=== PATIENT | female | born 1935 | race Caucasian/White ===

== ENCOUNTER → 2016-08-22 | Outpatient (CLI) | payer MEDICARE, BC ==
[~2016-08-22] MED LIST: ASPIR-LOW81 MG PO; ASPIRIN 81M81 MG/TA2 PO; COLACE 100100 MG/CAP PO; FISH OIL1 IU PO; LISINOPRIL10 MG PO; MASON NATURAL1200 MG PO; MICARDIS 40MG40 MG PO; MULTI VITAMINS1 TAB PO; MVI; OSCAL 500 TAB500 MG PO; OSCAL 500MG/VI500 MG PO; PLAVIX 75MG TAB75 MG PO; PRINIVIL10 MG PO; SENOKOT TABLET1 EA PO; VITAMIN C500 MG PO; ZANTAC 150MG T150 MG PO
== END ==
LOC: MC.RAD 08-21 13:20
DX: Z12.31 Encounter for screening mammogram for malignant neoplasm of breast (principal); Z85.3 Personal history of malignant neoplasm of breast

== ENCOUNTER → 2016-12-25 | Outpatient (CLI) | payer MEDICARE, BC | LOC: COL.VAS 08:53 | DX: I08.1 Rheumatic disorders of both mitral and tricuspid valves (principal); I37.1 Nonrheumatic pulmonary valve insufficiency ==

== ENCOUNTER 2017-02-05 08:53 | Observation (INO) | payer MEDICARE, BC ==
[2017-02-05] VITALS (19 sets, daily range): BP systolic 98–149; BP diastolic 55–98; PULSE 51–88; TEMP 97.7–98
[~2017-02-05] VITALS: Ht 167.6 cm; Wt 59.4 kg
[~2017-02-05 08:53] MED LIST changes: -ASPIRIN 81M81 MG/TA2 PO; -MASON NATURAL1200 MG PO; -MULTI VITAMINS1 TAB PO; -OSCAL 500 TAB500 MG PO; -PLAVIX 75MG TAB75 MG PO; -ZANTAC 150MG T150 MG PO
[2017-02-05] MEDS ORDERED: ZANTAC 150MG T150 MG PO (09:54)
[2017-02-05] MEDS ORDERED: MASON NATURAL1200 MG PO (09:55)
[2017-02-05] MEDS ORDERED: MULTI VITAMINS1 TAB PO (09:56)
[2017-02-05] MEDS ORDERED: VITAMIN C500 MG PO (09:56)
[2017-02-05] MEDS ORDERED: OSCAL 500 TAB500 MG PO (09:57)
[2017-02-05 09:58] LABS: HEMATOCRIT 39.1 % (37.0-47.0); MEAN CELL VOLUME 89 fl (80.0-100.0); MEAN CORPUSCULAR HEMOGLOBIN 29 pg (27.0-31.0); MEAN CORPUSCULAR HGB CONC 33 g/dl (33.0-37.0); MEAN PLATELET VOLUME 9.8 fl (7.4-10.4); PLATELET COUNT 212 K/mm3 (130-400); RED BLOOD COUNT 4.42 M/mm3 (4.10-5.30); REDCELL DISTRIBUTION WIDTH-CV 12.2 % (11.5-14.5); WHITE BLOOD COUNT 3.9 K/mm3 (4.8-10.8)
[2017-02-05 09:59] LABS: PROTHROMBIN TIME 10.9 SECONDS (9.7-12.8)
[2017-02-05 10:04] LABS: CALCIUM 9.2 mg/dL (8.4-10.2); CREATININE, serum 0.73 mg/dL (0.52-1.25); POTASSIUM 4.1 mmol/L (3.4-5.0)
[2017-02-06 00:49] VITALS: BP 92/43; PULSE 52; TEMP 98.5
[2017-02-06 01:44] VITALS: BP 95/40; PULSE 54; TEMP 97.8
[2017-02-06 05:07] VITALS: BP 115/50; PULSE 60; TEMP 98.7
[2017-02-06 08:11] VITALS: BP 109/55; PULSE 58; TEMP 98.7
[2017-02-06 12:49] VITALS: BP 123/59; PULSE 92; TEMP 98.6
[2017-02-06] MEDS ORDERED: ASPIRIN 81M81 MG/TA2 PO (12:57)
[2017-02-06] MEDS ORDERED: PLAVIX 75MG TAB75 MG PO (12:57)
== END 2017-02-06 13:47 | disposition home or self-care (01) ==
LOC: COL.CAR 08:53 → MEDICAL 19:46 → COL.CAR 19:47 → MEDICAL 02-06 13:47
PROVIDERS: Internal Medicine Cardiovascular Disease
DX: I34.0 Nonrheumatic mitral (valve) insufficiency (principal); I34.1 Nonrheumatic mitral (valve) prolapse; I10 Essential (primary) hypertension; R29.898 Other symptoms and signs involving the musculoskeletal system; Z85.3 Personal history of malignant neoplasm of breast; Z92.3 Personal history of irradiation; Z80.9 Family history of malignant neoplasm, unspecified; R53.83 Other fatigue; R27.0 Ataxia, unspecified; I25.9 Chronic ischemic heart disease, unspecified
CPT/HCPCS: A9585; C1725; C1760; C1769; C1894; G0378; J0461; J2250; J2310; J2405; J3010; Q9967

== ENCOUNTER → 2017-02-19 | Outpatient (CLI) | payer MEDICARE, BC ==
[~2017-02-19] MED LIST changes: +ASPIRIN 81M81 MG/TA2 PO; +MASON NATURAL1200 MG PO; +MULTI VITAMINS1 TAB PO; +OSCAL 500 TAB500 MG PO; +PLAVIX 75MG TAB75 MG PO; +ZANTAC 150MG T150 MG PO
== END ==
LOC: COL.PUL 11:22
DX: Z01.811 Encounter for preprocedural respiratory examination (principal); I34.1 Nonrheumatic mitral (valve) prolapse

== ENCOUNTER 2017-03-14 10:30 | Outpatient (RCR) | payer MEDICARE, BC | END 2017-03-15 16:16 | LOC: WSPT 10:30 | DX: I63.9 Cerebral infarction, unspecified (principal) | CPT/HCPCS: G8978-GP; G8979-GP; G8980-GP; G8987-GO; G8988-GO; G8989-GO ==

== ENCOUNTER 2017-05-19 10:05 | Emergency (ER) | payer MEDICARE, BC ==
[~2017-05-19] VITALS: Ht 165.1 cm; Wt 59.1 kg
[2017-05-19 10:07] VITALS: TEMP 97
[2017-05-19] MEDS ORDERED: TOPROL XL 25MG25 MG PO (10:24)
[2017-05-19] MEDS ORDERED: PROTONIX 40MG T40 MG PO (10:25)
[2017-05-19] MEDS ORDERED: SENNA8.6 MG PO (10:26)
[2017-05-19] MEDS ORDERED: VTAMINC250TA (10:27)
[2017-05-19] MEDS ORDERED: COUMADIN4 MG PO (10:28)
[2017-05-19 10:29] LABS: BASO % 0.8 % (0.0-2.0); EOS # 0.1 (0.0-0.7); GRAN # 2.8 (1.4-6.5); GRAN % 57.4 % (42.2-75.2); HEMATOCRIT 31.4 % (37.0-47.0); HEMOGLOBIN 9.7 g/dl (12.5-16.0); LYMPH # 1.4 (1.2-3.4); LYMPH % 27.6 % (20.0-51.0); MEAN CELL VOLUME 88 fl (80.0-100.0); MEAN CORPUSCULAR HEMOGLOBIN 27 pg (27.0-31.0); MEAN CORPUSCULAR HGB CONC 31 g/dl (33.0-37.0); MEAN PLATELET VOLUME 9.1 fl (7.4-10.4); MONO # 0.6 (0.1-0.6); PLATELET COUNT 280 K/mm3 (130-400); RED BLOOD COUNT 3.58 M/mm3 (4.10-5.30); WHITE BLOOD COUNT 4.9 K/mm3 (4.8-10.8)
[2017-05-19] MEDS ORDERED: MELATONIN5 M1 SL (10:29)
[2017-05-19] MEDS ORDERED: AMBIEN 5MG TABLE5 MG PO (10:29)
[2017-05-19] MEDS ORDERED: CARAFATE S1 GM/10 ML (10:30)
[2017-05-19 10:34] LABS: INR 1.7 (0.8-3.0); PROTHROMBIN TIME 19.4 SECONDS (9.7-12.8)
[2017-05-19] MEDS ORDERED: AFRIN 15 ML15 ML NS (11:08)
[2017-05-19 12:40] VITALS: BP 135/81; PULSE 80
== END 2017-05-19 12:36 | disposition home or self-care (01) ==
LOC: COL.ER 10:05
PROVIDERS: Emergency Medicine
DX: R04.0 Epistaxis (principal); I10 Essential (primary) hypertension; Z79.01 Long term (current) use of anticoagulants; Z79.82 Long term (current) use of aspirin; Z95.2 Presence of prosthetic heart valve; Z98.890 Other specified postprocedural states

== ENCOUNTER 2017-08-07 15:03 | Outpatient (RCR) | payer MEDICARE, BC ==
[~2017-08-07 15:03] MED LIST changes: +AFRIN 15 ML15 ML NS; +AMBIEN 5MG TABLE5 MG PO; +CARAFATE S1 GM/10 ML; +COUMADIN4 MG PO; +MELATONIN5 M1 SL; +PROTONIX 40MG T40 MG PO; +SENNA8.6 MG PO; +TOPROL XL 25MG25 MG PO; +VTAMINC250TA
== END 2017-08-08 | disposition still patient (30) ==
LOC: COL.CR
DX: Z48.812 Encounter for surgical aftercare following surgery on the circulatory system (principal); Z95.2 Presence of prosthetic heart valve; I34.0 Nonrheumatic mitral (valve) insufficiency

== ENCOUNTER 2017-08-23 12:42 | Outpatient (RCR) | payer MEDICARE, BC | END 2017-11-07 | disposition home or self-care (01) | LOC: COL.CR | DX: Z48.812 Encounter for surgical aftercare following surgery on the circulatory system (principal); Z95.2 Presence of prosthetic heart valve; I34.0 Nonrheumatic mitral (valve) insufficiency ==

== ENCOUNTER → 2017-08-23 | Outpatient (CLI) | payer MEDICARE, BC | LOC: MC.RAD 13:38 | DX: Z12.31 Encounter for screening mammogram for malignant neoplasm of breast (principal); Z85.3 Personal history of malignant neoplasm of breast; Z98.890 Other specified postprocedural states ==

== ENCOUNTER 2018-02-17 14:49 | Outpatient (RCR) | payer SELFPAY | END 2018-02-18 | disposition home or self-care (01) | LOC: COL.CR | DX: Z02.9 Encounter for administrative examinations, unspecified (principal) ==

== ENCOUNTER 2018-05-19 13:12 | Outpatient (RCR) | payer SELFPAY | END 2018-05-20 | disposition home or self-care (01) | LOC: COL.CR | DX: Z02.9 Encounter for administrative examinations, unspecified (principal) ==

== ENCOUNTER 2018-08-18 15:31 | Outpatient (RCR) | payer SELFPAY | END 2018-08-19 | disposition home or self-care (01) | LOC: COL.CR | DX: Z02.89 Encounter for other administrative examinations (principal) ==

== ENCOUNTER → 2018-08-25 | Outpatient (CLI) | payer MEDICARE, BC | LOC: MC.RAD 13:12 | DX: Z12.31 Encounter for screening mammogram for malignant neoplasm of breast (principal) ==

== ENCOUNTER 2018-11-17 13:04 | Outpatient (RCR) | payer SELFPAY | END 2018-11-18 | disposition home or self-care (01) | LOC: COL.CR | DX: Z02.89 Encounter for other administrative examinations (principal) ==

== ENCOUNTER → 2019-01-13 | Outpatient (CLI) | payer MEDICARE, BC | LOC: COL.RAD 09:36 | DX: R10.32 Left lower quadrant pain (principal); R53.83 Other fatigue ==

== ENCOUNTER 2019-02-16 15:06 | Outpatient (RCR) | payer SELFPAY | END 2019-02-17 | disposition home or self-care (01) | LOC: COL.CR | DX: Z02.89 Encounter for other administrative examinations (principal) ==

== ENCOUNTER 2019-05-18 15:56 | Outpatient (RCR) | payer SELFPAY ==
[~2019-05-18 15:56] MED LIST changes: +B-121000 MCG PO; +NAPROSYN500 MG PO; +ZANTAC 150150 MG; +ZOFRAN 4MG T4 MG/TAB PO
== END 2019-05-19 | disposition home or self-care (01) ==
LOC: COL.CR
DX: Z02.89 Encounter for other administrative examinations (principal)

== ENCOUNTER 2019-08-17 15:40 | Outpatient (RCR) | payer SELFPAY | END 2019-08-18 | disposition home or self-care (01) | LOC: COL.CR | DX: Z02.89 Encounter for other administrative examinations (principal) ==

== ENCOUNTER → 2019-09-07 | Outpatient (CLI) | payer MEDICARE, BC | LOC: MC.RAD 10:22 | DX: Z12.31 Encounter for screening mammogram for malignant neoplasm of breast (principal); Z98.890 Other specified postprocedural states ==

== ENCOUNTER 2019-09-23 11:02 | Outpatient (RCR) | payer SELFPAY | END 2019-11-19 | disposition home or self-care (01) | LOC: COL.CR | DX: Z02.89 Encounter for other administrative examinations (principal) ==

== ENCOUNTER 2020-03-02 16:07 | Outpatient (RCR) | payer SELFPAY ==
[~2020-03-02 16:07] MED LIST changes: +BETAPACE 80MG80 MG PO; +SENNA-LAX8.6 MG PO; -SENNA8.6 MG PO
== END 2020-03-03 | disposition home or self-care (01) ==
LOC: COL.CR
DX: Z02.89 Encounter for other administrative examinations (principal)

== ENCOUNTER 2020-06-01 15:15 | Outpatient (RCR) | payer SELFPAY | END 2020-06-02 | disposition home or self-care (01) | LOC: COL.CR | DX: Z02.89 Encounter for other administrative examinations (principal) ==

== ENCOUNTER 2020-09-02 14:47 | Outpatient (RCR) | payer SELFPAY | END 2020-09-04 | disposition home or self-care (01) | LOC: COL.CR | DX: Z02.89 Encounter for other administrative examinations (principal) ==

== ENCOUNTER → 2020-09-08 | Outpatient (CLI) | payer MEDICARE | LOC: MC.RAD 11:30 | DX: Z12.31 Encounter for screening mammogram for malignant neoplasm of breast (principal); Z00.00 Encounter for general adult medical examination without abnormal findings; Z98.890 Other specified postprocedural states; Z92.3 Personal history of irradiation; Z98.82 Breast implant status ==

== ENCOUNTER 2020-12-02 17:05 | Outpatient (RCR) | payer SELFPAY | END 2020-12-04 | disposition home or self-care (01) | LOC: COL.CR | DX: Z02.89 Encounter for other administrative examinations (principal) ==

== ENCOUNTER 2021-05-16 10:30 | Outpatient (RCR) | payer MEDICARE, BC | END 2021-07-07 | disposition home or self-care (01) | LOC: PT.GENESIS | DX: R26.81 Unsteadiness on feet (principal) ==

== ENCOUNTER → 2021-10-03 | Outpatient (CLI) | payer MEDICARE | LOC: MC.RAD 09:13 | DX: Z12.31 Encounter for screening mammogram for malignant neoplasm of breast (principal) ==

== ENCOUNTER 2021-10-04 14:43 | Outpatient (RCR) | payer SELFPAY | END 2021-10-05 | LOC: COL.CR | DX: Z29.8 Encounter for other specified prophylactic measures (principal) ==

== ENCOUNTER 2021-11-03 10:20 | Outpatient (RCR) | payer SELFPAY | END 2021-11-04 | LOC: COL.CR | DX: Z29.8 Encounter for other specified prophylactic measures (principal) ==

== ENCOUNTER 2021-11-29 14:58 | Outpatient (RCR) | payer SELFPAY | END 2021-12-05 | LOC: COL.CR | DX: Z29.8 Encounter for other specified prophylactic measures (principal) ==

== ENCOUNTER 2022-01-03 14:57 | Outpatient (RCR) | payer SELFPAY | END 2022-01-04 | LOC: COL.CR | DX: Z29.8 Encounter for other specified prophylactic measures (principal) ==

== ENCOUNTER 2022-02-02 13:08 | Outpatient (RCR) | payer SELFPAY | END 2022-02-04 | LOC: COL.CR | DX: Z29.8 Encounter for other specified prophylactic measures (principal) ==

== ENCOUNTER → 2022-03-07 | Outpatient (RCR) | payer SELFPAY | LOC: COL.CR | DX: Z29.8 Encounter for other specified prophylactic measures (principal) ==

== ENCOUNTER → 2023-12-05 | Outpatient (CLI) | payer MEDICARE | LOC: MC.RAD 09:40 | DX: Z12.31 Encounter for screening mammogram for malignant neoplasm of breast (principal) ==

== ENCOUNTER 2024-03-30 07:25 | Observation (INO) | payer MEDICARE, BC ==
[~2024-03-30] VITALS: Ht 165.2 cm; Wt 62.1 kg
[2024-03-30] VITALS (11 sets, daily range): BP systolic 122–148; BP diastolic 66–89; PULSE 69–99; TEMP 97.4–97.7
[~2024-03-30 07:25] MED LIST changes: -VTAMINC250TA; +VTAMINC250TA PO
[2024-03-30 08:10] LABS: BASO % 0.8 % (0.0-2.0); GRAN # 2.3 K/mm3 (1.4-6.5); GRAN % 58.2 % (42.2-75.2); HEMATOCRIT 38.8 % (37.0-47.0); HEMOGLOBIN 12.9 g/dl (12.5-16.0); LYMPH % 24.7 % (20.0-51.0); MEAN CELL VOLUME 91 fl (80.0-100.0); MEAN CORPUSCULAR HEMOGLOBIN 30 pg (27-31); MEAN CORPUSCULAR HGB CONC 33 g/dl (33.0-37.0); MONO # 0.6 K/mm3 (0.1-0.6); MONO % 15.3 % (1.7-9.3); PLATELET COUNT 208 K/mm3 (130-400); RED BLOOD COUNT 4.27 M/mm3 (4.10-5.30); REDCELL DISTRIBUTION WIDTH-CV 11.6 % (11.5-14.5)
[2024-03-30 08:43] LABS: PARTIAL THROMBOPLASTIN TIME 29.9 SECONDS (26.0-37.0)
[2024-03-30] MEDS ORDERED: LR 1,000 ML IV ONE (08:45)
[2024-03-30 08:57] LABS: BILIRUBIN,TOTAL 0.5 mg/dL (0.2-1.2); CALCIUM 9.4 mg/dL (8.4-10.2); CREATININE, serum 0.76 mg/dL (0.57-1.11); MAGNESIUM 2.2 mg/dL (1.6-2.6); POTASSIUM 4.3 mEq/L (3.5-4.5); TOTAL PROTEIN 7.1 g/dl (6.2-8.1)
[2024-03-30 09:07] LABS: TROPONIN-I 0.012 ng/mL (0.00-0.033)
[2024-03-30] MEDS ORDERED: 1/2 NS 1,000 ML IV SCH (10:15)
[2024-03-30] MEDS ORDERED: NS 1,000 ML IV SCH (11:00)
[2024-03-30] MEDS ORDERED: Lidocaine PF 2% (20 MG/ML) 5 ML VIAL ONE (11:04)
--- NOTE | 2024-03-30 13:01 | NUR ---
PATIENT ADMITTED TO MEDICAL UNIT AT THIS TIME. ADMISSION INTAKE AND ASSESSMENT COMPLETED. MED REC UPDATED. PATIENT DENIES ANY PAIN, IS DROWSY. PATIENT ORIENTED TO ROOM. CALL LIGHT PLACED WITHIN REACH. DENIES ANY NEEDS AT THIS TIME. WILL CONTINUE TO MONITOR.
[2024-03-30] MEDS ORDERED: NORVASC 5MG5 MG/TAB PO (13:40)
[2024-03-30] MEDS ORDERED: Acetaminophen 500 MG TAB PO PRN (13:45)
[2024-03-30] MEDS ORDERED: HIPREX PO (13:47)
[2024-03-30] MEDS ORDERED: amLODIPine 5 MG TAB PO SCH (13:57)
--- NOTE | 2024-03-30 17:54 | NUR ---
PATIENT NOTIFIED THIS RN THAT SHE WAS FEELING SOB AND LIKE SHE WAS HAVING PALPITATIONS. THIS RN OBTAINED VITALS, BP 136/81 P 73 RR 18 SPO2 94%. PATIENT DENIED FEELING ANXIOUS. THIS RN NOTIFIED DR. PRAJAPATI, WILL CONTINUE TO MONITOR FOR NOW.
--- NOTE | 2024-03-30 20:30 | NUR ---
UPON SHIFT ASSESSMENT, DEEPTHI WAS AWAKE IN BED AND A&O X4 WITH BEDSIDE. SHE C/O OF MILD CHEST SORENESS AND "BREATHING FASTER"-VS ARE WNL AND TELE IS NS -PACED. NO INCREASE WOB NOTED AND PATIENT HEART SOUNDS NORMAL AT 62 BPM. ASKED PATIENT IF SHE WOULD LIKE THIS NURSE TO NOTIFY HOSPITALIST. PATIENT REFUSED AND STATED, "NO NEED TO CALL THE DOCTOR." PATIENT EDUCATION WAS PROVIDED ON SIGNS AND SYMPTOMS OF CARDIAC ARRYTHMIAS AND TO PLEASE ALERT THIS NURSE IF SYMPTOMS CHANGE. CALL LIGHT WITHIN REACH.
[2024-03-30] MEDS ORDERED: Omega-3 Fatty Acid Esters (OTC) 1,000 MG CAP PO SCH (21:00)
--- NOTE | 2024-03-30 22:00 | NUR ---
CALL PLACED TO HOSPITALIST, ALYX CORCORAN. REQUEST FOR MELATONIN PATIENT TAKES THIS AT HOME FOR INSOMNIA. TORB FOR PO MELATONIN 3MG AT HS GIVEN.
[2024-03-30] MEDS ORDERED: Melatonin 3 MG TAB PO SCH (22:11)
[2024-03-31] VITALS (12 sets, daily range): BP systolic 92–143; BP diastolic 55–85; PULSE 72–76; TEMP 97.7–98.5
--- NOTE | 2024-03-31 01:04 | NUR ---
PATIENT REFUSING 0400 VITAL SIGNS. STATES SHE IS TIRED AND WISHES TO NOT BE DISTURBED, "I WISH YOU WOULD NOT DO THIS RIGHT NOW, PLEASE LET ME SLEEP." PATIENT EDUCATION PROVIDED. PATIENT DOES NOT WANT TO BE DISTURBED AGAIN.
--- NOTE | 2024-03-31 04:00 | NUR ---
PATIENT AGREEABLE TO MORNING VITALS AND ALL WNL. STATES CHEST TIGHTNESS AND SOA HAS RESOLVED, "...FEELING BETTER."
--- NOTE | 2024-03-31 08:30 | NUR ---
patient sitting in bed eating breakfast. denies pain at this time. telemetry inplace. on room air. family at bedside, shift assessment completed, questions were answered, no further concerns at this time. call light within reach. bed at lowest position.
[2024-03-31] MEDS ORDERED: Multivitamin TAB PO SCH (09:00)
[2024-03-31] MEDS ORDERED: Ascorbic Acid 500 MG TAB PO SCH (09:00)
[2024-03-31] MEDS ORDERED: Cyanocobalamin (Vit B-12) 1,000 MCG TAB PO SCH (09:00)
[2024-03-31] MEDS ORDERED: Clopidogrel 75 MG TAB PO SCH (09:00)
[2024-03-31] MEDS ORDERED: BETAPACE 120MG120 MG PO (09:10)
--- NOTE | 2024-03-31 09:21 | NUR ---
boil off worker met with pt and , Oli [phone] to discuss discharge planning. They report to live together in [place]. Pt sees Dr. Mayberry for PCP needs and obtains medications from [facility] with no difficulties. She verified Medicare A/B and [employer] insurance. Pt is independent with ADLS and uses no DME. [facility] is at home listing her . Discharge Plan: home
--- NOTE | 2024-03-31 11:24 | NUR ---
D: Hospital Personnel Director stopped by room on rounds. A: Pt was sleeping with and daugther in the room. Pt did wake up as the retail link analyst was speaking with her family. Great conversation with family and pt. Pt has no needs right now. P: Hospital Personnel Director informed pt that if she needed anything from the retail link analyst area to let her nurse know. Hospital Personnel Director will follow up as needed.
--- NOTE | 2024-03-31 12:11 | NUR ---
Patient attends Phase 3 (maintenance) program at outpatient cardiac rehab. Discussed that patient needs to be seen by PCP before returning to program but appricate rec from cardiology if further hold is needed from formal exercise.
--- NOTE | 2024-03-31 15:45 | NUR ---
patient reported feeling pressure under right breast and some chest tightness. patient stated " I feel uncomfortable, no pain just very uncomfortable feeling on my chest". patient cardiology nurse notified. no new orders at this time. patient vss wnl. patient family at bedside. call light within reach.
--- NOTE | 2024-03-31 20:42 | NUR ---
PATIENT RESTING IN BED WITH EYES CLOSED, EASILY ROUSED. SHE IS VERY HARD OF HEARING. DENIES ANY PAIN OR SHORTNESS OF BREATH AT THIS TIME. CALL LIGHT IS WITHIN REACH. BED IS LOCKED AND IN LOW POSITION.
[2024-04-01] VITALS (26 sets, daily range): BP systolic 95–136; BP diastolic 62–89; PULSE 70–99; TEMP 97.5–98.7
--- NOTE | 2024-04-01 04:06 | NUR ---
PATIENT EXPRESSED FRUSTRATION TO WHY SHE IS NPO. TOLD PATIENT THAT THIS IS DUE TO HER BEING SCHEDULED FOR A STRESS TEST IN THE MORNING. PATIENT STATED SHE KNEWE SHE'D BE HAVING THE STRESS TEST BUT "THAT'S A STUPID REASON TO NOT EAT OR DRINK."
[2024-04-01] MEDS ORDERED: Calcium Carbonate 500 MG TAB PO SCH (09:00)
[2024-04-01] MEDS ORDERED: PACERONE400 MG PO (11:14)
[2024-04-01] MEDS ORDERED: LR 1,000 ML IV SCH (11:15)
[2024-04-01] MEDS ORDERED: Regadenoson 0.08 MG/ML 5 ML SYRINGE IV SCH (11:40)
--- NOTE | 2024-04-01 12:30 | NUR ---
PATIENT GOING TO MANUFACTURING SOFTWARE ENGINEER FOR [facility].
[2024-04-01] MEDS ORDERED: Amiodarone 200 MG TAB PO SCH (12:58)
--- NOTE | 2024-04-01 13:30 | NUR ---
Pt back to [facility] - bedside handoff performed with SUNIL Leal: vitals initiated and stable, pt AOx4, call light in reach, at bedside.
--- NOTE | 2024-04-01 14:13 | NUR ---
SW attended clinical rounding and pt is set to discharge today after lexiscan and other work up. SW inquried about PT/OT orders in the meantime. ESSIE Ortiz ordered this. PT/OT pending fabric worker met with pt's , Oli and [id number] to provide list of [email or web address] HH agencies in the event pt needs this and so they can think about it as pt was in a scan. They understood and report PT/OT has not seen pt and had concerns about her being lightheaded when she did get up previosuly. Discharge Plan: home
[2024-04-01 15:05] LABS: BASO % 0.4 % (0.0-2.0); EOS % 0.4 % (0.0-4.0); GRAN # 2.9 K/mm3 (1.4-6.5); GRAN % 59.1 % (42.2-75.2); HEMATOCRIT 38.4 % (37.0-47.0); HEMOGLOBIN 12.8 g/dl (12.5-16.0); LYMPH # 1.3 K/mm3 (1.2-3.4); LYMPH % 25.7 % (20.0-51.0); MEAN CELL VOLUME 91 fl (80.0-100.0); MEAN CORPUSCULAR HEMOGLOBIN 30 pg (27-31); MEAN CORPUSCULAR HGB CONC 33 g/dl (33.0-37.0); MEAN PLATELET VOLUME 9.2 fl (7.4-10.4); MONO # 0.7 K/mm3 (0.1-0.6); MONO % 14.2 % (1.7-9.3); PLATELET COUNT 201 K/mm3 (130-400); RED BLOOD COUNT 4.21 M/mm3 (4.10-5.30); REDCELL DISTRIBUTION WIDTH-CV 11.9 % (11.5-14.5)
[2024-04-01 15:16] LABS: CALCIUM 9.1 mg/dL (8.4-10.2); CREATININE, serum 0.7 mg/dL (0.57-1.11)
--- NOTE | 2024-04-01 16:00 | NUR ---
PATIENT DISCHARGE INSTRUCTIONS GIVEN TO PATIENT. FAMILY AT BED SIDE. PATIENT VERBALIZED UNDERSTANDING. LEFT FORARM IV DISCONTINUED. TELEMETRY DISCONTINUED. PATIENT DENIED ANY OTHER QUESTIONS. PATIENT INSTRUCTED TO CALL WHEN READY TO GO.
--- NOTE | 2024-04-01 16:30 | NUR ---
PATIENT ESCORTED OUT OF UNIT BY PCT ACCOMPANIED BY FAMILY MEMBERS
== END 2024-04-01 16:30 | disposition home or self-care (01) ==
LOC: COL.ER 07:25 → MEDICAL 09:39
PROVIDERS: Family Medicine; Internal Medicine Cardiovascular Disease; ADMIT Internal Medicine
DX: I48.4 Atypical atrial flutter (principal); I49.5 Sick sinus syndrome; R79.1 Abnormal coagulation profile; D72.819 Decreased white blood cell count, unspecified; I10 Essential (primary) hypertension; K21.9 Gastro-esophageal reflux disease without esophagitis; N32.81 Overactive bladder; N39.0 Urinary tract infection, site not specified; Z79.02 Long term (current) use of antithrombotics/antiplatelets; Z95.0 Presence of cardiac pacemaker; Z79.82 Long term (current) use of aspirin; Z95.2 Presence of prosthetic heart valve; Z92.3 Personal history of irradiation; Z79.899 Other long term (current) drug therapy; Z85.3 Personal history of malignant neoplasm of breast; I08.0 Rheumatic disorders of both mitral and aortic valves
CPT/HCPCS: A9500-JZ; G0378; J0282; J1650; J2704; J2785; J7060; J7120

== ENCOUNTER 2024-04-02 18:58 | Emergency (ER) | payer MEDICARE, BC ==
[~2024-04-02] VITALS: Ht 165.1 cm; Wt 61.4 kg
[~2024-04-02 18:58] MED LIST changes: +BETAPACE 120MG120 MG PO; +HIPREX PO; +NORVASC 5MG5 MG/TAB PO; +PACERONE400 MG PO
[2024-04-02 19:40] LABS: BASO % 0.5 % (0.0-2.0); EOS % 0.7 % (0.0-4.0); GRAN # 2.6 K/mm3 (1.4-6.5); HEMATOCRIT 36.2 % (37.0-47.0); HEMOGLOBIN 12.7 g/dl (12.5-16.0); LYMPH % 23.1 % (20.0-51.0); MEAN CELL VOLUME 88 fl (80.0-100.0); MEAN CORPUSCULAR HEMOGLOBIN 31 pg (27-31); MEAN CORPUSCULAR HGB CONC 35 g/dl (33.0-37.0); MONO # 0.6 K/mm3 (0.1-0.6); MONO % 13.5 % (1.7-9.3); PLATELET COUNT 197 K/mm3 (130-400); RED BLOOD COUNT 4.12 M/mm3 (4.10-5.30); REDCELL DISTRIBUTION WIDTH-CV 11.6 % (11.5-14.5)
[2024-04-02 19:55] LABS: BILIRUBIN,TOTAL 0.5 mg/dL (0.2-1.2); CALCIUM 9.5 mg/dL (8.4-10.2); CREATININE, serum 0.75 mg/dL (0.57-1.11); POTASSIUM 3.9 mEq/L (3.5-4.5); TOTAL PROTEIN 7.2 g/dl (6.2-8.1)
[2024-04-02 20:01] LABS: TROPONIN-I 0.016 ng/mL (0.00-0.033)
[2024-04-02] MEDS ORDERED: Ondansetron 4 MG/2 ML VIAL IV ONE (21:00)
[2024-04-02] MEDS ORDERED: Amiodarone 200 MG TAB PO ONE (21:30)
[2024-04-02] MEDS ORDERED: Home Ondansetron ODT 4 MG #2 ODT/PACK PO ONE (21:30)
[2024-04-02 21:57] VITALS: BP 139/82; PULSE 71
== END 2024-04-02 22:10 | disposition home or self-care (01) ==
LOC: COL.ER 18:58
PROVIDERS: Nurse Practitioner Primary Care
DX: R07.89 Other chest pain (principal); R11.2 Nausea with vomiting, unspecified
CPT/HCPCS: J2405